=== PATIENT | female | born 1935 | race Caucasian/White ===

== ENCOUNTER 2016-10-14 10:15 | Outpatient (CLI) | payer MEDICARE ==
[2016-10-14 13:43] LABS: ALT (SGPT) 20 U/L (0-55); AST (SGOT) 25 U/L (5-34); Albumin 4.1 g/dL (3.4-4.8); Alkaline Phosphatase 70 U/L (40-150); Anion Gap 15 mmol/L (10-20); BUN (Urea Nitrogen) 24 mg/dL (9.8-20.1); Bilirubin, Total 0.5 mg/dL (0.2-1.2); Calc. Creatinine Clearance 0 mL/min (70-130); Calcium 9.5 mg/dL (7.8-10.44); Carbon Dioxide 25 mmol/L (23-31); Cardiac Risk 2.9 (Less than 4.5); Chloride 100 mmol/L (98-107); Cholesterol 150 mg/dL (< 200 Desired); Estimated GFR-MDRD 42; Globulin 2.3 g/dL (2.4-3.5); Glucose 94 mg/dL (83-110); HDL Cholesterol 51 mg/dL (>60 Neg Risk); LDL Cholesterol, Calculated 76 mg/dL; Potassium 4.7 mmol/L (3.5-5.1); Protein, Total 6.4 g/dL (5.8-8.1); Sodium 135 mmol/L (136-145); Triglycerides 117 mg/dL (Less than 150)
[2016-10-14 14:14] LABS: Bilirubin Negative (Negative); Blood, Urine Negative (Negative); Clarity Clear (Clear); Glucose, Urine (Dipstick) Negative (Negative); Leukocyte Small (Negative); Nitrite Negative (Negative); Protein, Urine (Dipstick) Negative (Neg-Trace); Specific Gravity, Urine 1.015 (1.005-1.030); Urobilinogen 0.2 mg/dL (0.2-1.0)
[2016-10-14 14:20] LABS: Eosinophils 1 % (0-10); Hemoglobin 12.2 g/dL (12.0-16.0); Lymphocytes 26 % (21-51); MDiff Complete? YES; Mean Corpuscular HGB CONC 34.1 g/dL (32.0-36.0); Mean Corpuscular Hemoglobin 30.8 pg (27.0-31.0); Mean Corpuscular Volume 90.3 fl (81.0-99.0); Monocytes 10 % (0-10); Neutrophil 63 % (42-75); PLT Morphology Comment Appears Adequate; Platelet Count 182 thou/uL (130-400); RBC Distribution Width 12.1 % (11.5-14.5); Red Blood Cell (RBC) Count 3.96 mill/uL (4.20-5.40); White Blood Cell (WBC) Count 4.6 thou/uL (4.8-10.8)
[2016-10-14 14:26] LABS: Bacteria/HPF Rare-Few HPF (None Seen); RBC/HPF None Seen HPF (0-3); WBC/HPF 0-3 HPF (0-3)
[2016-10-14 14:27] LABS: Other Microscopic Description NO
== END 2016-10-14 10:16 | disposition home or self-care (01) ==
LOC: NAVSJIPCSP 10:15
PROVIDERS: ATTEND Internal Medicine
DX: I10 Essential (primary) hypertension (principal); Z98.61 Coronary angioplasty status
CPT/HCPCS: 36415; 80053; 80061; 81003; 81015; 84443; 85025

== ENCOUNTER 2017-01-19 12:03 | Outpatient (CLI) | payer MEDICARE ==
[2017-01-19 15:57] LABS: ALT (SGPT) 12 U/L (8-55); AST (SGOT) 19 U/L (5-34); Albumin 3.9 g/dL (3.4-4.8); Alkaline Phosphatase 72 U/L (40-150); Anion Gap 15 mmol/L (10-20); BUN (Urea Nitrogen) 20 mg/dL (9.8-20.1); Bilirubin, Total 0.5 mg/dL (0.2-1.2); Calc. Creatinine Clearance 0 mL/min (70-130); Calcium 9.3 mg/dL (7.8-10.44); Carbon Dioxide 25 mmol/L (23-31); Cardiac Risk 2.9 (Less than 4.5); Chloride 101 mmol/L (98-107); Cholesterol 158 mg/dl (< 200 Desired); Estimated GFR-MDRD 44; Globulin 1.4 g/dL (2.4-3.5); Glucose 92 mg/dL (83-110); HDL Cholesterol 55 mg/dL (>60 Neg Risk); LDL Cholesterol, Calculated 80 mg/dL; Potassium 4.4 mmol/L (3.5-5.1); Protein, Total 5.3 g/dL (6.0-8.3); Sodium 137 mmol/L (136-145); Triglycerides 115 mg/dL (Less than 150)
[2017-01-19 18:11] LABS: Bilirubin Negative (Negative); Blood, Urine Negative (Negative); Glucose, Urine (Dipstick) Negative (Negative); Leukocyte Small (Negative); Nitrite Negative (Negative); Protein, Urine (Dipstick) Negative (Neg-Trace); Specific Gravity, Urine 1.015 (1.005-1.030); Urobilinogen 0.2 mg/dL (0.2-1.0)
[2017-01-19 18:26] LABS: Clarity SL HAZY (Clear)
[2017-01-19 18:28] LABS: Squamous Epithelial 0-3 HPF (0-3); WBC/HPF 0-3 HPF (0-3)
== END 2017-01-19 12:04 | disposition home or self-care (01) ==
LOC: NAVSJIPCSP 12:03
PROVIDERS: ATTEND Internal Medicine
DX: Z48.812 Encounter for surgical aftercare following surgery on the circulatory system (principal); Z98.61 Coronary angioplasty status
CPT/HCPCS: 80053; 80061; 81003; 81015; 84443

== ENCOUNTER 2019-04-22 11:49 | Emergency (ER) | payer MEDICARE ==
[2019-04-22 12:50] LABS: #Basophils 0.1 thou/uL (0.0-0.2); #Eosinphils 0.1 thou/uL (0.0-0.7); #Monocytes 0.4 thou/uL (0.11-0.59); #Neutrophils 2.9 thou/uL (1.40-6.50); %Basophils 1.6 % (0.0-1.0); %Eosinophils 2.9 % (0.0-10.0); %Lymphocytes 22.3 % (21.0-51.0); %Neutrophils 65.3 % (42.0-75.0); Hemoglobin 11.9 g/dL (12.0-16.0); Mean Corpuscular HGB CONC 32.2 g/dL (32.0-36.0); Mean Corpuscular Hemoglobin 27.8 pg (27.0-31.0); Mean Corpuscular Volume 86.5 fL (78.0-98.0); Mean Platelet Volume 6.8 fL (7.4-10.4); Platelet Count 209 thou/uL (130-400); RBC Distribution Width 12.9 % (11.5-14.5); Red Blood Cell (RBC) Count 4.28 mill/uL (4.20-5.40); White Blood Cell (WBC) Count 4.5 thou/uL (4.8-10.8)
[2019-04-22 12:55] LABS: Anion Gap 15 mmol/L (10-20); BUN (Urea Nitrogen) 24 mg/dL (9.8-20.1); Calc. Creatinine Clearance 0 mL/min (70-130); Carbon Dioxide 24 mmol/L (23-31); Chloride 102 mmol/L (98-107); Estimated GFR-MDRD 44; Glucose 122 mg/dL (83-110); Potassium 4.4 mmol/L (3.5-5.1); Sodium 137 mmol/L (136-145)
== END 2019-04-22 13:37 | disposition short-term general hospital (02) ==
LOC: NAV ERS 11:49
DX: M79.89 Other specified soft tissue disorders (principal); I10 Essential (primary) hypertension; I25.10 Atherosclerotic heart disease of native coronary artery without angina pectoris; Z79.82 Long term (current) use of aspirin; Z79.899 Other long term (current) drug therapy
CPT/HCPCS: 80048; 85025; 85379; 99284

== ENCOUNTER → 2020-08-17 | Day surgery (SDC) | payer MEDICARE ==
[~2020-08-17] MED LIST: Acetaminophen 500 MG TAB PO SCH; BAMLANIVIMAB 700 MG in Sodium Chloride 0.9% 250 ML 250 ML IVPB SCH; BAMLANIVIMAB 700 MG/20 ML VIAL IVPB ONE; Sodium Chloride 0.9% 250 ML 250 ML ONE; diphenhydrAMINE 50 MG/ML VIAL IVP SCH; diphenhydrAMINE 50 MG/ML VIAL ONE
[2020-08-17 18:11] VITALS: BP 133/75; TEMP 98.8
== END ==
LOC: NAV ER/OP 15:26
PROVIDERS: ATTEND Internal Medicine
DX: U07.1 COVID-19 (principal); Z88.0 Allergy status to penicillin; Z88.5 Allergy status to narcotic agent
CPT/HCPCS: J1200; J7050; Q0239

== ENCOUNTER 2020-09-24 22:48 | Emergency (ER) | payer MEDICARE ==
[2020-09-24] MEDS ORDERED: Lidocaine 1% w/Epinephrine 1:100K 30 ML VIAL ONE (23:18)
[2020-09-24] MEDS ORDERED: Triple Antibiotic Oint 1 GM Packet ONE (23:56)
== END 2020-09-25 00:10 | disposition home or self-care (01) ==
LOC: NAV ERS 22:48
DX: S81.011A Laceration without foreign body, right knee, initial encounter (principal); I25.10 Atherosclerotic heart disease of native coronary artery without angina pectoris; I10 Essential (primary) hypertension; W01.198A Fall on same level from slipping, tripping and stumbling with subsequent striking against other object, initial encounter
CPT/HCPCS: 12004

== ENCOUNTER 2021-03-13 14:27 | Outpatient (CLI) | payer MEDICARE | END 2021-03-13 14:28 | disposition home or self-care (01) | LOC: NAV RAD 14:27 | PROVIDERS: ATTEND Emergency Medicine | DX: M25.512 Pain in left shoulder (principal); W19.XXXA Unspecified fall, initial encounter ==

== ENCOUNTER 2022-06-23 14:54 | Outpatient (CLI) | payer MEDICARE | END 2022-06-23 14:55 | disposition home or self-care (01) | LOC: NAV RAD 14:54 | PROVIDERS: ATTEND Family Medicine | DX: M25.552 Pain in left hip (principal); M16.12 Unilateral primary osteoarthritis, left hip | CPT/HCPCS: 72170 ==

== ENCOUNTER 2022-08-01 18:35 | Emergency (ER) | payer MEDICARE ==
[2022-08-01] MEDS ORDERED: Sodium Chloride 0.9% 1,000 ML ONE (18:51)
[2022-08-01] MEDS ORDERED: Ondansetron PF 4 MG/2 ML Vial ONE (18:51)
[2022-08-01 19:10] LABS: #Basophils 0.1 thou/uL (0.0-0.2); #Lymphocytes 1.5 thou/uL (1.20-3.40); #Monocytes 0.6 thou/uL (0.11-0.59); #Neutrophils 9.3 thou/uL (1.40-6.50); %Basophils 0.5 % (0.0-1.0); %Eosinophils 0.3 % (0.0-10.0); %Lymphocytes 13.2 % (21.0-51.0); %Monocytes 5.4 % (0.0-10.0); %Neutrophils 80.7 % (42.0-75.0); Hemoglobin 13.5 g/dL (12.0-16.0); Mean Corpuscular HGB CONC 32.7 g/dL (32.0-36.0); Mean Corpuscular Hemoglobin 31.4 pg (27.0-31.0); Mean Corpuscular Volume 95.9 fl (78.0-98.0); Platelet Count 236 10x3/uL (130-400); RBC Distribution Width 11.7 % (11.5-14.5); Red Blood Cell (RBC) Count 4.32 mill/uL (4.20-5.40); White Blood Cell (WBC) Count 11.5 10x3/uL (4.8-10.8)
[2022-08-01 19:16] LABS: Prothrombin Time 13.4 sec (12.0-14.7)
[2022-08-01 19:17] LABS: PTT 28.2 sec (22.9-36.1)
[2022-08-01 19:26] LABS: ALT (SGPT) 28 U/L (8-55); AST (SGOT) 26 U/L (5-34); Albumin 4.1 g/dL (3.4-4.8); Alkaline Phosphatase 84 U/L (40-110); Anion Gap 17 mmol/L (10-20); BUN (Urea Nitrogen) 24 mg/dL (9.8-20.1); Bilirubin, Total 0.7 mg/dL (0.2-1.2); CRP (Inflammatory) Less than 0.50 mg/dL (= or < 0.5); Calc. Creatinine Clearance 0 mL/min (70-130); Calcium 9.7 mg/dL (7.8-10.44); Carbon Dioxide 20 mmol/L (23-31); Chloride 104 mmol/L (98-107); Estimated GFR 49; Globulin 2.3 g/dL (2.4-3.5); Glucose 120 mg/dL (83-110); Lipase 38 U/L (8-78); Magnesium 1.5 mg/dL (1.6-2.6); Protein, Total 6.4 g/dL (5.8-8.1); Sodium 137 mmol/L (136-145)
[2022-08-01] MEDS ORDERED: Magnesium Oxide 400 MG TAB PO SCH (20:00)
== END 2022-08-01 20:22 | disposition home or self-care (01) ==
LOC: NAV ERS 18:35
DX: R11.2 Nausea with vomiting, unspecified (principal); R19.7 Diarrhea, unspecified; I10 Essential (primary) hypertension; I25.10 Atherosclerotic heart disease of native coronary artery without angina pectoris; Z79.82 Long term (current) use of aspirin; Z79.899 Other long term (current) drug therapy
CPT/HCPCS: 36415; 80053; 83605; 83690; 83735; 85025; 85610; 85730; 86140; 87040; 96374; J2405; J7050